=== PATIENT | female | born 1950 | race Caucasian/White ===

== ENCOUNTER 2017-10-25 06:38 | Day surgery (SDC) | payer MEDICARE ==
[2017-10-24 17:15] VITALS: BMI 30.7
[~2017-10-25 06:38] MED LIST: ACETAMINOPHEN 325 MG TABLET (FP) PO PRN; BSS (NA/CA/MG/K) BALANCED SALT SOLUTION OPHTH SOLN 15 ML BOTTLE OS ONE; CHONDROITIN SU A/HYALUR SOD 1 KIT IO ONE; EPINEPHrine/PF 1 MG/1 ML (1:1,000) AMPULE IO ONE; LIDOCAINE HCL 1% PRESERVATIVE FREE - 30ML VIAL IO ONE; POVIDONE-IODINE 5% OPHTHALMIC PREP 30 ML SOLUTION OS ONE; TETRACAINE 0.5% OPHTH SOLN 2 ML BOTTLE OS ONE; TROPICAMIDE 1% OPHTH SOLN 15 ML BOTTLE OP SCH; TRYPAN BLUE 0.5 ML DISP.SYRIN IO ONE
[2017-10-25 07:15] VITALS: TEMP 98.6
[2017-10-25] MEDS ORDERED: LIDOCAINE HCL/PF 1% SDV 5ML VIAL ONE (07:17)
[2017-10-25] MEDS ORDERED: FLURBIPROFEN 0.03% OPHTH SOLN 2.5 ML BOTTLE ONE (07:28)
[2017-10-25] MEDS ORDERED: CYCLOPENTOLATE HCL 1% OPHTH SOLN 2 ML BOTTLE ONE (07:29)
[2017-10-25] MEDS ORDERED: PHENYLEPHRINE 2.5% OPHTH SOLN 15 ML BOTTLE ONE (07:29)
[2017-10-25] MEDS ORDERED: CIPROFLOXACIN 0.3% EYE DROPS 5 ML BOTTLE ONE (07:29)
[2017-10-25] MEDS ORDERED: TROPICAMIDE 0.5% OPHTHALMIC SOLN 15 ML BOTTLE ONE (07:29)
[2017-10-25] MEDS: CYCLOPENTOLATE HCL 1% OPHTH SOLN 2 ML BOTTLE OP SCH ×3 (07:30→07:50)
[2017-10-25] MEDS: FLURBIPROFEN 0.03% OPHTH SOLN 2.5 ML BOTTLE OP SCH ×3 (07:30→07:50)
[2017-10-25] MEDS: CIPROFLOXACIN HCL 0.3% OPHTH 2.5ML BOTTLE OP SCH ×3 (07:30→07:50)
[2017-10-25] MEDS: PHENYLEPHRINE 2.5% OPHTH SOLN 15 ML BOTTLE OP SCH ×3 (07:30→07:50)
[2017-10-25] MEDS ORDERED: LACTATED RINGERS SOLUTION 1,000 ML IV SCH (08:30)
[2017-10-25] MEDS ORDERED: MIDAZOLAM HCL 2 MG/2 ML SINGLE DOSE VIAL ONE (08:54)
--- NOTE | 2017-10-25 09:06 | HP ---
History & Physical Update - History History: No Change - Physical Physical: No Change - Assessment Assessment: No Change - Plan Plan: No Change
[2017-10-25] MEDS ORDERED: TETRACAINE 0.5% OPHTH SOLN 2 ML BOTTLE OS ONE (09:07)
[2017-10-25] MEDS ORDERED: POVIDONE-IODINE 5% OPHTHALMIC PREP 30 ML SOLUTION OS ONE (09:10)
[2017-10-25] MEDS ORDERED: LIDOCAINE HCL 1% PRESERVATIVE FREE - 30ML VIAL IO ONE (09:19)
[2017-10-25] MEDS ORDERED: TRYPAN BLUE 0.5 ML DISP.SYRIN IO ONE (09:19)
[2017-10-25] MEDS ORDERED: CHONDROITIN SU A/HYALUR SOD 1 KIT IO ONE (09:19)
[2017-10-25] MEDS ORDERED: BSS (NA/CA/MG/K) BALANCED SALT SOLUTION OPHTH SOLN 15 ML BOTTLE OS ONE (09:19)
[2017-10-25] MEDS ORDERED: EPINEPHrine/PF 1 MG/1 ML (1:1,000) AMPULE IO ONE (09:29)
[2017-10-25 10:54] VITALS: BP 135/64; PULSE 66
--- NOTE | 2017-10-25 18:26 | OP ---
DATE OF OPERATION: 10/25/2017 PREOPERATIVE DIAGNOSIS: Cataract, left eye. POSTOPERATIVE DIAGNOSIS: Cataract, left eye. PROCEDURE: Phacoemulsification of left cataract with posterior chamber intraocular lens implantation, capsule staining with trypan blue, and posterior chamber intraocular lens implantation. The lens used [id number], 20.0 diopter power, serial number [id number]. ANESTHESIA: Topical/MAC. COMPLICATIONS: None. DESCRIPTION OF PROCEDURE: The patient was brought to the operating room and correctly identified along with the operative site as well as correct intraocular lens craft. She was then prepped and draped in the usual fashion including Betadine solution in the conjunctival sac and an eyelid drape. An eyelid speculum was then placed into the left eye. The cataract inspected, and a large pupil was noted with a dense cataract. However, a decent red reflex was noted. A paracentesis port was created, and intracameral lidocaine of 1% preservative free, approximately 0.5 mL was injected intracamerally. Viscoelastic was injected to inflate the anterior chamber, and a temporal clear cornea wound was created. A capsulorrhexis was initiated with a cystotome, and then, Utrata forceps were used to complete it. However, at the final part, it was difficult to visualize if the capsulorrhexis was completed. Trypan blue was then used on the capsule to stain the residual anterior capsule beneath viscoelastic in a paintbrush fashion, confirming the completion of the capsulorrhexis. The nucleus was then hydrodissected with BSS and removed with phacoemulsification. The remaining cortical and epinuclear material were irrigated and aspirated from the eye. The viscoelastic was injected to inflate the capsular bag, the lens injected into the capsular bag. The viscoelastic was then irrigated and aspirated from the eye. All wounds were tested and found to be watertight. All wounds were checked and found to be watertight. The intraocular lens was noted to be well centered and covered by the anterior capsule border. Topical vancomycin given, the eye patched and shielded, and the patient discharged from the operating room in a stable condition. HYACINTH BECKWITH M.D. [id number] MTDD
== END 2017-10-25 11:10 | disposition home or self-care (01) ==
LOC: JASU-SURG 06:38
PROVIDERS: ATTEND Ophthalmology
PROC: 08RK3JZ Replacement of Left Lens with Synthetic Substitute, Percutaneous Approach (ICD-10-PCS; principal; 2017-10-25 09:00)
DX: H26.9 Unspecified cataract (principal)

== ENCOUNTER 2019-03-12 14:58 | Emergency (ER) | payer MEDICARE, OTHER ==
--- NOTE | 2019-03-12 15:02 | PDOC ---
Rapid Medical Evaluation Time Seen by Provider: 03/12/19 15:00 Medical Evaluation: Allergies Allergy/AdvReac Type Severity Reaction Status Date / Time No Known Allergies Allergy Verified 10/13/14 15:26 03/12/19 15:00 HPI: abdominal pain x3 days PE: No gross deficits ORDERS: Labs and urine 03/12/19 15:02 Discharge Disposition - Diagnosis Abdominal pain - Referrals - Patient Instructions - Post Discharge Activity
[2019-03-12 15:08] VITALS: BMI 35.9
[2019-03-12] MEDS ORDERED: FAMOTIDINE 20 MG/50 ML IVPB 20 MG/50 ML MG IVPB ONE ×2 (17:41→18:02)
[2019-03-12] MEDS ORDERED: SODIUM CHLORIDE 0.9% 500 ML INFUS.BAG IV ONE (17:41)
[2019-03-12] MEDS ORDERED: KETOROLAC TROMETHAMINE 15 MG/ML VIAL IVPUSH ONE (17:41)
--- NOTE | 2019-03-12 17:41 | PDOC ---
History of Present Illness - General Chief Complaint: Pain Stated Complaint: LOWER BACK / ABD PAIN Time Seen by Provider: 03/12/19 15:00 - History of Present Illness Initial Comments: Michelle Hopkins is a 68yo woman with a PMH of HTN, uterine CA s/p hysterectomy, OA who presents with 3 days of abdominal pain. She states that the pain starts in her right back and goes around to the lower right abdomen. The pain is burning, 8/10, and constant. It has not changed over the past 3 days, and has not moved nor worsened. She tried taking acetaminophen without relief. Ms Hopkins denies any associated dysuria, hematuria, frequency or urgency as well as recent fever, chills, diarrhea, constipation, or vomiting. She does endorse some nausea and sour taste in her mouth, for which she states she has been drinking lemonade. She has been tolerating PO intake without difficulty. Ms Hopkins reports that she had similar pain about 3 years ago, but the pain resolved on its own. She never saw a doctor regarding the pain. Past History - Past Medical History Allergies/Adverse Reactions: Allergies Allergy/AdvReac Type Severity Reaction Status Date / Time No Known Allergies Allergy Verified 03/12/19 15:08 Home Medications: Ambulatory Orders Aspirin [ASA -] 81 mg PO DAILY #0 10/15/14 Metoprolol Succinate [Toprol XL -] 100 mg PO DAILY 10/25/17 Cardiac Disorders: Yes COPD: No GI Disorders: Yes (GERD) Disorders: No HTN: Yes - Surgical History Orthopedic Surgery: No - Suicide/Smoking/Psychosocial Hx Smoking History: Never smoked Have you smoked in the past 12 months: No Hx Alcohol Use: No Drug/Substance Use Hx: No Review of Systems - Review of Systems Comments:: General: No fevers, no chills, no weight or appetite change, no malaise HEENT: No changes in vision, no changes in hearing, no congestion, no sore throat CV: No chest pain, no palpitations, no LE edema Pulm: No SOB, no cough, no wheezing GI: No nausea or vomiting, no change in bowel habits, no melena. +abd pain, see HPI : No frequency, no urgency, no dysuria, +Rt flank pain, see HPI Musc: No back pain, no joint swelling, no recent injury Skin: No rash, no lesions, no erythema Endo: No excessive thirst, no heat/cold intolerance Heme: No unusual bruising or bleeding, no swollen glands Neuro: No syncope, no numbness/tingling, no focal weakness Vasc: No claudication Psych: No recent change in mood, no SI or HI *Physical Exam - Vital Signs Last Vital Signs Temp Pulse Resp BP Pulse Ox 98.5 F 50 L 16 195/75 H 99 03/12/19 15:00 03/12/19 15:00 03/12/19 15:00 03/12/19 15:00 03/12/19 15:00 - Physical Exam Comments: General: Comfortable, no acute distress HEENT: PERRL, EOMI, MMM, voice normal, normal neck ROM Cards: RRR, no murmur appreciated Pulm: Comfortable on room air, clear to auscultation bilaterally Abd: Soft, nondistended. Slight epigastric TTP : Moderate right CVA tenderness Ext: Atraumatic. No LE edema. ROM intact Vasc: Extremities WWP Skin: Normal color, no rashes or lesions Neuro: A&Ox3, CN grossly intact, normal speech, motor/sensory grossly intact and symmetric Psych: Mood appropriate to situation ED Treatment Course - LABORATORY CBC & Chemistry Diagram: 03/12/19 17:30 03/12/19 17:30 Medical Decision Making - Medical Decision Making 03/12/19 17:39 Michelle Hopkins is a 68yo woman with a PMH of HTN, uterine CA s/p hysterectomy, OA who presents with 3 days of right-sided burning abdominal pain that radiates from the right flank to the RLQ. She has mild nausea but no other associated symptoms. - Ddx includes kidney stone, pyelonephritis. No abdominal tenderness on exam, less likely cholecystitis, appendicitis, or pancreatitis. Possible gastritis/ gastroenteritis but no diarrhea or vomiting - CBC, CMP, UA, UCx, lipase - 1L NS, toradol 03/12/19 18:31 - CBC, CMP unremarkable - Kidney function normal, will order CT abd/pelvis with contrast - Need UA to be sent 03/12/19 18:49 - UA negative 03/12/19 19:31 - Sign out given to Dr Corey for the remainder of her ED care. Discussed with Dr Greene. Celine Dominguez PGY2 *DC/Admit/Observation/Transfer Diagnosis at time of Disposition: Abdominal pain - Referrals Referrals: Rashid Zeng MD [Primary Care Provider] - - Patient Instructions - Post Discharge Activity
[2019-03-12 17:55] LABS: BASO % 0.8 % (0-2.0); EOS % 2.4 % (0-4.5); HEMATOCRIT 40.6 % (32.4-45.2); HEMOGLOBIN 13.6 GM/dL (10.7-15.3); LYMPH % 33.8 % (8-40); MCHC 33.6 g/dl (32.0-36.0); MEAN CELL VOLUME 92.3 fl (80-96); MEAN PLT VOLUME 7.6 fl (7.5-11.1); MONO % 6.3 % (3.8-10.2); NEUT % 56.7 % (42.8-82.8); PLATELET COUNT 267 K/MM3 (134-434); RDW 13.5 % (11.6-15.6); WHITE BLOOD COUNT 9.9 K/mm3 (4.0-10.0)
[2019-03-12] MEDS ORDERED: KETOROLAC TROMETHAMINE 15 MG/ML VIAL ONE (18:03)
[2019-03-12 18:27] LABS: ALBUMIN 3.5 g/dl (3.4-5.0); BILIRUBIN,TOTAL 0.6 mg/dL (0.2-1); BLOOD UREA NITROGEN 12.1 mg/dL (7-18); CALCIUM 8.7 mg/dL (8.5-10.1); CREATININE 0.6 mg/dL (0.55-1.3); POTASSIUM 4.6 mmol/L (3.5-5.1); TOT PROT 7.6 g/dl (6.4-8.2)
[2019-03-12 18:43] LABS: PH,URINE 7.5 (5.0-8.0); URINE APPEARANCE CLEAR; URINE BILIRUBIN NEGATIVE (NEGATIVE); URINE COLOR YELLOW; URINE GLUCOSE (UA) NEGATIVE (NEGATIVE); URINE KETONE NEGATIVE (NEGATIVE); URINE LEUK ESTERASE NEGATIVE (NEGATIVE); URINE NITRITE NEGATIVE (NEGATIVE); URINE PROTEIN NEGATIVE (NEGATIVE); URINE UROBILINOGEN 0.2 mg/dL (0.2-1.0)
--- NOTE | 2019-03-12 18:59 | PDOC ---
Documentation entered by Danyel Carranza SCRIBE, acting as scribe for Rochelle Greene MD. Rochelle Greene MD: This documentation has been prepared by the [employer], SCRIBE, under my direction and personally reviewed by me in its entirety. I confirm that the documentation accurately reflects all work, treatment, procedures, and medical decision making performed by me. Attending Attestation - Resident Resident Name: Celine Dominguez - [facility] HPI: 03/12/19 18:03 The patient is a 68 year old female with a significant past medical history of hypertension, GERD and CAD who presents to the emergency department with right sided flank pain for 3 days. The patient states that her flank pain radiates to her right groin and describes it as a burning pain. The patient also reports some left lower abdominal pain . she states that she has had similar episodes in the past that was relieved in its own. The patient endorses taking Tylenol for pain with no significant relief. She also endorse some nausea with her flank pain. The patient denies any fever, chills, vomiting, diarrhea, constipation, urinary symptoms. She denies any chest pain, shortness of breath, headache of dizziness. The patient denies any other complaints. - Physicial Exam PE: 03/12/19 18:29 GENERAL: Awake, alert, and fully oriented, in no acute distress HEAD: No signs of trauma EYES: PERRLA, EOMI, sclera anicteric, conjunctiva clear ENT: Auricles normal inspection, hearing grossly normal, nares patent, oropharynx clear without exudates. Moist mucosa NECK: Normal ROM, supple, no lymphadenopathy, JVD, or masses LUNGS: Breath sounds equal, clear to auscultation bilaterally. No wheezes, and no crackles HEART: Regular rate and rhythm, normal S1 and S2, no murmurs, rubs or gallops ABDOMEN: (+)tenderness to left lower quadrant without guarding or rebound, Mild left CVA tenderness. Soft, normoactive bowel sounds. No masses EXTREMITIES: Normal range of motion, no edema. No clubbing or cyanosis. No cords, erythema, or tenderness NEUROLOGICAL: Cranial nerves II through XII grossly intact. Normal speech, normal gait SKIN: Warm, Dry, normal turgor, no rashes or lesions noted. - Medical Decision Making 03/12/19 19:01 Pt presents to the ED with a two day history of L flank pain, radiating to the LLQ. Differential includes nephrolithiasis, diverticulitis, less likely abscess. Will check labs and CT abdomen and reassess.
--- NOTE | 2019-03-12 20:50 | PDOC ---
*Physical Exam - Vital Signs Last Vital Signs Temp Pulse Resp BP Pulse Ox 98.2 F 56 L 18 199/82 H 100 03/12/19 15:00 03/12/19 15:00 03/12/19 15:00 03/12/19 15:00 03/12/19 15:00 - Physical Exam Comments: 03/12/19 20:50 GENERAL: Awake, alert, and fully oriented, in no acute distress HEAD: No signs of trauma, normocephalic, atraumatic EYES: PERRLA, EOMI, sclera anicteric, conjunctiva clear ENT: Auricles normal inspection, hearing grossly normal, nares patent, oropharynx clear without exudates. Moist mucosa NECK: Normal ROM, supple, no lymphadenopathy, JVD, or masses LUNGS: No distress, speaks full sentences, clear to auscultation bilaterally HEART: Regular rate and rhythm, normal S1 and S2, no murmurs, rubs or gallops, peripheral pulses normal and equal bilaterally. ABDOMEN: Soft, nontender, normoactive bowel sounds. No guarding, no rebound. No masses EXTREMITIES : Normal inspection, Normal range of motion, no edema. No clubbing or cyanosis. NEUROLOGICAL: Cranial nerves II through XII grossly intact. Normal speech, normal gait, no focal sensorimotor deficits SKIN: Warm, Dry, normal turgor, no rashes or lesions noted ED Treatment Course - LABORATORY CBC & Chemistry Diagram: 03/12/19 17:30 03/12/19 17:30 - ADDITIONAL ORDERS Additional order review: Laboratory Results 03/12/19 03/12/19 18:27 17:30 Sodium 140 Potassium 4.6 Chloride 106 Carbon Dioxide 28 Anion Gap 6 L BUN 12.1 Creatinine 0.6 Est GFR (CKD-EPI)AfAm 107.79 Est GFR (CKD-EPI)NonAf 93.00 Random Glucose 92 Calcium 8.7 Total Bilirubin 0.6 AST 29 ALT 34 Alkaline Phosphatase 97 Total Protein 7.6 Albumin 3.5 Lipase 154 Urine Color Yellow Urine Appearance Clear Urine pH 7.5 D Ur Specific [place] 1.005 L Urine Protein Negative Urine Glucose (UA) Negative Urine Ketones Negative Urine Blood Negative Urine Nitrite Negative Urine Bilirubin Negative Urine Urobilinogen 0.2 Ur Leukocyte Esterase Negative 03/12/19 17:30 RBC 4.40 MCV 92.3 MCHC 33.6 RDW 13.5 MPV 7.6 Neutrophils % 56.7 Lymphocytes % 33.8 Monocytes % 6.3 Eosinophils % 2.4 Basophils % 0.8 - Medications Given in the ED: ED Medications Discontinued Medications Generic Name Dose Route Start Last Admin Trade Name Rodrigo PRN Reason Stop Dose Admin Famotidine/Sodium Chloride 20 mg in 50 mls @ 100 mls/hr 03/12/19 17:41 18:06 Pepcid 20 Mg Premixed Ivpb - IVPB 03/12/19 18:10 100 mls/hr ONCE ONE Administration Ketorolac Tromethamine 15 mg 03/12/19 17:41 03/12/19 18:06 Toradol Injection - IVPUSH 03/12/19 17:42 15 mg ONCE ONE Administration Sodium Chloride 1,000 ml 03/12/19 17:41 03/12/19 18:13 Normal Saline - IV 03/12/19 17:42 1,000 ml ONCE ONE Administration Medical Decision Making - Medical Decision Making 03/12/19 20:45 68 yo M with h/o OA, HTN, Uterine Ca. s/p hysterectomy who p/w right sided burning flank pain x 3 days. Patient endorsed by Dr. Celine Dominguez. Patient pain improved following Toradol, NS. Negative UA. CBC, CMP are unremarkable. Pending CTAP, dispo. Ed Course: CTAP: Unremarkable Patient stable for d/c with return precautions. *DC/Admit/Observation/Transfer Diagnosis at time of Disposition: Abdominal pain Qualifiers: Abdominal location: right lower quadrant Qualified Code(s): R10.31 - Right lower quadrant pain - Discharge Dispostion Condition at time of disposition: Stable Decision to Admit order: No - Referrals Referrals: Rashid Zeng MD [Primary Care Provider] - - Patient Instructions Printed Discharge Instructions: DI for Flank Pain Additional Instructions: Please return to the emergency department with any new or worsening symptoms or concerns. Please follow up with your primary care physician within 72 hours. - Post Discharge Activity
[2019-03-13 00:07] VITALS: BP 122/68; PULSE 103; TEMP 98.6
== END 2019-03-13 00:07 | disposition home or self-care (01) ==
LOC: JER 14:58
PROC: 3E0333Z Introduction of Anti-inflammatory into Peripheral Vein, Percutaneous Approach (ICD-10-PCS; principal; 2019-03-12)
PROC: 3E0337Z Introduction of Electrolytic and Water Balance Substance into Peripheral Vein, Percutaneous Approach (ICD-10-PCS; 2019-03-12)
PROC: 3E033GC Introduction of Other Therapeutic Substance into Peripheral Vein, Percutaneous Approach (ICD-10-PCS; 2019-03-12)
DX: R10.31 Right lower quadrant pain (principal); I10 Essential (primary) hypertension; M19.90 Unspecified osteoarthritis, unspecified site; Z85.42 Personal history of malignant neoplasm of other parts of uterus; Z90.710 Acquired absence of both cervix and uterus
CPT/HCPCS: 36415; 74177-TC; 80053; 81003; 83690; 85025; 87086; 96365; 96375; 99284-25

== ENCOUNTER 2023-08-23 04:57 | Day surgery (SDC) | payer MEDICARE ==
[2023-08-22 09:02] VITALS: BMI 36.0
[~2023-08-23 04:57] MED LIST changes: +BSS (NA/CA/MG/K) BALANCED SALT SOLUTION OPHTH SOLN 15 ML BOTTLE IO ONE; -BSS (NA/CA/MG/K) BALANCED SALT SOLUTION OPHTH SOLN 15 ML BOTTLE OS ONE; -CHONDROITIN SU A/HYALUR SOD 1 KIT IO ONE; -EPINEPHrine/PF 1 MG/1 ML (1:1,000) AMPULE IO ONE; +LIDOCAINE 1%/EPI 1:100000 (20 ML MULTI DOSE VIAL) INF ONE; -LIDOCAINE HCL 1% PRESERVATIVE FREE - 30ML VIAL IO ONE; -POVIDONE-IODINE 5% OPHTHALMIC PREP 30 ML SOLUTION OS ONE; -TETRACAINE 0.5% OPHTH SOLN 2 ML BOTTLE OS ONE; +TRIAMCINOLONE ACET 40MG/1ML VIAL NR ONE; -TROPICAMIDE 1% OPHTH SOLN 15 ML BOTTLE OP SCH; -TRYPAN BLUE 0.5 ML DISP.SYRIN IO ONE
[2023-08-23] MEDS ORDERED: OFLOXACIN 0.3% OPHTHALMIC SOLUTION 5 ML BOTTLE ONE (10:20)
[2023-08-23] MEDS: OFLOXACIN 0.3% OPHTHALMIC SOLUTION 5 ML BOTTLE OP SCH ×3 (10:23→10:59)
[2023-08-23] MEDS ORDERED: TRIAMCINOLONE ACET 40MG/1ML VIAL ONE (11:39)
[2023-08-23] MEDS ORDERED: LIDOCAINE 1%/EPI 1:100000 (20 ML MULTI DOSE VIAL) ONE (11:39)
[2023-08-23] MEDS ORDERED: MIDAZOLAM HCL 2 MG/2 ML SINGLE DOSE VIAL ONE (12:34)
[2023-08-23] MEDS ORDERED: TETRACAINE 0.5% OPHTH SOLN 2 ML BOTTLE OD ONE (12:56)
[2023-08-23] MEDS ORDERED: POVIDONE-IODINE 5% OPHTHALMIC PREP 30 ML SOLUTION OD ONE (12:58)
[2023-08-23] MEDS ORDERED: BSS (NA/CA/MG/K) BALANCED SALT SOLUTION OPHTH SOLN 15 ML BOTTLE IO ONE (13:02)
[2023-08-23] MEDS ORDERED: LIDOCAINE 1%/EPI 1:100000 (20 ML MULTI DOSE VIAL) INF ONE (13:03)
[2023-08-23] MEDS ORDERED: KETOROLAC TROMETHAMINE 30 MG/1 ML VIAL ONE (13:16)
[2023-08-23] MEDS ORDERED: ONDANSETRON 4 MG/2 ML VIAL ONE (13:17)
[2023-08-23] MEDS ORDERED: TRIAMCINOLONE ACET 40MG/1ML VIAL NR ONE (13:31)
[2023-08-23 13:48] VITALS: TEMP 98.1
[2023-08-23 14:50] VITALS: BP 118/50; PULSE 39; RESP 20
== END 2023-08-23 14:08 | disposition home or self-care (01) ==
LOC: JASU-SURG 04:57
PROVIDERS: ATTEND Ophthalmology
PROC: 08BSXZX Excision of Right Conjunctiva, External Approach, Diagnostic (ICD-10-PCS; principal; 2023-08-23 12:00)
DX: H11.001 Unspecified pterygium of right eye (principal)

== ENCOUNTER 2023-12-13 04:18 | Day surgery (SDC) | payer MEDICARE ==
[2023-12-08 11:46] VITALS: BMI 34.3
[~2023-12-13 04:18] MED LIST changes: -BSS (NA/CA/MG/K) BALANCED SALT SOLUTION OPHTH SOLN 15 ML BOTTLE IO ONE; -LIDOCAINE 1%/EPI 1:100000 (20 ML MULTI DOSE VIAL) INF ONE; -TRIAMCINOLONE ACET 40MG/1ML VIAL NR ONE
[2023-12-13] MEDS ORDERED: LIDOCAINE HCL/PF 1% SDV 5ML VIAL ONE (07:14)
[2023-12-13] MEDS ORDERED: EPINEPHrine/PF 1 MG/1 ML (1:1,000) AMPULE ONE (07:14)
[2023-12-13] MEDS ORDERED: POVIDONE-IODINE 5% OPHTHALMIC PREP 30 ML SOLUTION ONE (07:15)
[2023-12-13] MEDS ORDERED: TETRACAINE 0.5% OPHTH SOLN 2 ML BOTTLE ONE (07:15)
[2023-12-13 07:36] VITALS: RESP 20
[2023-12-13] MEDS ORDERED: TROPICAMIDE 1% OPHTH SOLN 15 ML BOTTLE ONE (07:51)
[2023-12-13] MEDS ORDERED: OFLOXACIN 0.3% OPHTHALMIC SOLUTION 5 ML BOTTLE ONE (07:51)
[2023-12-13] MEDS ORDERED: PHENYLEPHRINE 2.5% OPTHALMIC DROP 2ML BOTTLE ONE (07:51)
[2023-12-13] MEDS ORDERED: KETOROLAC TROMETHAMINE 0.5% EYE DROP 1 DROP DROPS ONE (07:51)
[2023-12-13] MEDS: KETOROLAC TROMETHAMINE 0.5% EYE DROP 1 DROP DROPS OP SCH (08:01)
[2023-12-13] MEDS: CYCLOPENTOLATE HCL 1% OPHTH SOLN 2 ML BOTTLE OP SCH (08:01)
[2023-12-13] MEDS: OFLOXACIN 0.3% OPHTHALMIC SOLUTION 5 ML BOTTLE OP SCH (08:01)
[2023-12-13] MEDS: TROPICAMIDE 1% OPHTH SOLN 15 ML BOTTLE OP SCH (08:01)
[2023-12-13] MEDS: PHENYLEPHRINE 2.5% OPHTH SOLN 15 ML BOTTLE OP SCH (08:01)
[2023-12-13] MEDS ORDERED: MIDAZOLAM HCL 2 MG/2 ML SINGLE DOSE VIAL ONE (08:06)
[2023-12-13] MEDS: CYCLOPENTOLATE 2% OPHTH SOLN 2 ML BOTTLE OP ONE ×2 (08:10→08:15)
[2023-12-13] MEDS: TETRACAINE 0.5% OPHTH SOLN 2 ML BOTTLE TP ONE (09:00)
[2023-12-13] MEDS: POVIDONE-IODINE 5% OPHTHALMIC PREP 30 ML SOLUTION OD ONE (09:03)
[2023-12-13] MEDS: BSS (NA/CA/MG/K) BALANCED SALT SOLUTION OPHTH SOLN 15 ML BOTTLE OD ONE (09:13)
[2023-12-13] MEDS: TRYPAN BLUE 0.5 ML DISP.SYRIN IO ONE (09:14)
[2023-12-13] MEDS: LIDOCAINE HCL 1% PRESERVATIVE FREE - 30ML VIAL IO ONE (09:14)
[2023-12-13] MEDS: CHONDROITIN SU A/HYALUR SOD 1 KIT IO ONE (09:14)
[2023-12-13] MEDS: EPINEPHrine/PF 1 MG/1 ML (1:1,000) AMPULE SQ ONE (09:24)
[2023-12-13 10:02] VITALS: TEMP 97.5
[2023-12-13 12:49] VITALS: BP 133/63; PULSE 52
== END 2023-12-13 11:15 | disposition home or self-care (01) ==
LOC: JASU-SURG 04:18
PROVIDERS: ATTEND Ophthalmology
PROC: 08RJ3JZ Replacement of Right Lens with Synthetic Substitute, Percutaneous Approach (ICD-10-PCS; principal; 2023-12-13 09:00)
DX: H26.9 Unspecified cataract (principal)
CPT/HCPCS: V2632